=== PATIENT | male | born 1975 | race Caucasian/White ===

== ENCOUNTER 2019-01-30 09:49 | Emergency (ER) | payer OTHER ==
[~2019-01-30] VITALS: Ht 182.9 cm; Wt 86.2 kg
== END 2019-01-30 11:33 | disposition home or self-care (01) ==
LOC: ER 09:49
DX: S71.112A Laceration without foreign body, left thigh, initial encounter (principal); W29.3XXA Contact with powered garden and outdoor hand tools and machinery, initial encounter
CPT/HCPCS: 12035; 90471; 99282-25